=== PATIENT | female | born 1950 | race Caucasian/White ===

== ENCOUNTER 2018-06-21 18:37 | Emergency (ER) | payer OTHER, MEDICAID ==
[~2018-06-21] VITALS: Ht 154.9 cm; Wt 80.7 kg
[~2018-06-21 18:37] MED LIST: ASPIR-LOW81 MG PO; LANTUS100 U/ML SC; LISINOPRIL10 MG PO; METFORMIN HCL1000 MG PO; MOTRIN600 MG PO; SIMVASTATIN40 MG PO; SYNTHROID,LEVO50 MCG PO
[2018-06-21 18:41] VITALS: BP 141/74
[2018-06-21] MEDS ORDERED: INDOMETHACIN50 MG PO (19:56)
== END 2018-06-21 19:59 | disposition home or self-care (01) ==
LOC: ED 18:37
DX: M77.32 Calcaneal spur, left foot (principal); M25.572 Pain in left ankle and joints of left foot; Z79.899 Other long term (current) drug therapy

== ENCOUNTER → 2018-08-02 | Outpatient (CLI) | payer OTHER ==
[~2018-08-02] MED LIST changes: +INDOMETHACIN50 MG PO
[2018-08-02 11:51] LABS: HEMATOCRIT 44.8 % (37.0-47.0); HEMOGLOBIN 15.4 g/dl (12.0-16.0); MEAN CORPUSCULAR HGB 29.6 pg (27.0-31.0); MEAN CORPUSCULAR HGB CONC 34.4 g/dl (33.0-37.0); RED BLOOD COUNT 5.21 10*6/uL (4.10-5.10); RED CELL DISTRI WIDTH 14.4 % (0-14.5); WHITE BLOOD COUNT 8.5 10*3/uL (4.8-10.8)
[2018-08-02 12:15] LABS: ALBUMIN 3.8 gm/dl (3.1-4.5); BUN 17 mg/dl (7-24); CHLORIDE 107 mmol/L (98-107); HDL CHOLESTEROL 58 mg/dl (40-60); POTASSIUM 4.2 mmol/L (3.5-5.1); SODIUM 140 mmol/L (136-145)
[2018-08-02 12:22] LABS: ALKALINE PHOSPHATASE 138 U/L (45-117); CHOLESTEROL 238 mg/dL (<200); CPK 95 U/L (26-192); CREATININE 1.05 mg/dL (0.55-1.02); FREE T4 1.12 ng/dl (0.76-1.46); LDL CHOLESTEROL 147 mg/dL (9-159); SGOT/AST 20 IU/L (3-35); SGPT/ALT 26 U/L (12-78); TOTAL PROTEIN 7.9 gm/dL (6.4-8.2); TRIGLYCERIDES 163 mg/dl (<150); VLDL CHOLESTEROL 33 mg/dL (6-40)
== END | disposition home or self-care (01) ==
LOC: LAB 11:15
PROVIDERS: Family Medicine
DX: E11.9 Type 2 diabetes mellitus without complications (principal); E78.00 Pure hypercholesterolemia, unspecified; I10 Essential (primary) hypertension; E03.9 Hypothyroidism, unspecified; E55.9 Vitamin D deficiency, unspecified; M19.90 Unspecified osteoarthritis, unspecified site; F43.20 Adjustment disorder, unspecified

== ENCOUNTER → 2018-12-01 | Day surgery (SDC) | payer OTHER ==
[~2018-12-01] VITALS: Ht 157.4 cm; Wt 73.5 kg
[~2018-12-01] MED LIST changes: +ATENOLOL25 MG PO; +BIOTIN5000 MC1 SL; +DEXILANT60 M1 PO; +HUMALOG100 UNIT/1 SQ; +JANUVIA100 MG PO; -LISINOPRIL10 MG PO; +TOUJEO SOL300 UNIT/1 SQ; +ZESTRIL40 MG PO
--- NOTE | ~2018-12-01 | PROC NOTE ---
[place], [place] PROCEDURE NOTE NAME: TORI MCMAHON UNIT #: [id number] ROOM: DOCTOR: PETER FITZGERALD MD BIRTHDATE: [birth year] DOS: 12/01/2018 PROCEDURES: 1. Esophagogastroduodenoscopy and biopsy. 2. Colonoscopy. INDICATIONS: 1. GERD. 2. Colon cancer screening. An informed consent was obtained from the patient after indication of procedures, the alternatives and potential complications were explained to her. PROCEDURE MEDICATIONS: Sedation was administered by Anesthesiology Department. Scope used was Olympus pediatric colonoscope variable stiffness GIF-180, depth of insertion with upper endoscopy was to the descending duodenum and with the colonoscopy was to the cecum, which was identified by the usual landmarks, appendiceal orifice, ileocecal valve and triangular fold, in addition to transillumination in the right lower quadrant. FINDINGS: After adequate sedation, the patient was placed in left lateral decubitus position. Upper endoscopy was performed first. The scope was introduced under direct visualization through the upper esophageal sphincter into the esophagus. Esophageal mucosa appeared normal with the GE junction identified at 35 cm from the incisors with irregular Z line borders suggestive of short segment Diaz's esophagus, biopsies were obtained. The stomach was then intubated. Gastric mucosa inspected. No abnormalities were seen. No discrete ulcers or active bleeding. Retroflexed views in the fundus showed a grade 1 hiatal hernia. The pylorus was intubated easily. The duodenal bulb and descending duodenum were within normal range. Scope was then withdrawn after the stomach was decompressed. We then proceeded with the colonoscopy. Rectal examination showed a diminished sphincter tone and no external hemorrhoids. Scope was introduced into the rectum, then advanced to the cecum with no difficulty. The prep was adequate. The colon mucosa appeared normal with no evidence of polyps, diverticular ulcerations. Retrograde views in the rectum were unremarkable. The scope was then withdrawn after the rectum was decompressed. The patient tolerated the procedures well. IMPRESSION: 1. Small hiatal hernia. 2. Irregular Z line borders, biopsies obtained to rule out short segment Diaz esophagus. 3. Normal upper GI tract, otherwise. 4. Normal colon mucosa with no polyp seen. PLAN: We will review the histopathology reports and treat the patient accordingly. Repeat screening colonoscopy was advised in 10 years. Office followup will be scheduled p.r.n. [place], [place] PROCEDURE NOTE NAME: TORI MCMAHON UNIT #: [id number] ROOM: DOCTOR: LIA JOY,PETER BIRTHDATE: [birth year] PETER FITZGERALD MD CM:PROCNOTE:PROCEDURE NOTE [id number] PETER FITZGERALD MD
[2018-12-01 07:11] VITALS: BP 166/80
[2018-12-01 08:38] VITALS: BP 120/60
[2018-12-01 08:50] VITALS: BP 120/62
[2018-12-01 09:10] VITALS: BP 125/68
== END | disposition home or self-care (01) ==
LOC: SDC 11-17 08:00
DX: Z12.11 Encounter for screening for malignant neoplasm of colon (principal); K63.89 Other specified diseases of intestine; K21.9 Gastro-esophageal reflux disease without esophagitis; K22.8 Other specified diseases of esophagus; K44.9 Diaphragmatic hernia without obstruction or gangrene; I10 Essential (primary) hypertension; M19.90 Unspecified osteoarthritis, unspecified site; Z90.710 Acquired absence of both cervix and uterus; E10.9 Type 1 diabetes mellitus without complications; E66.9 Obesity, unspecified; Z68.29 Body mass index [BMI] 29.0-29.9, adult; Z98.890 Other specified postprocedural states; Z91.012 Allergy to eggs; Z91.011 Allergy to milk products; Z91.013 Allergy to seafood; Z91.018 Allergy to other foods; Z72.89 Other problems related to lifestyle; Z79.899 Other long term (current) drug therapy; Z79.84 Long term (current) use of oral hypoglycemic drugs; Z80.0 Family history of malignant neoplasm of digestive organs; Z82.3 Family history of stroke; Z82.49 Family history of ischemic heart disease and other diseases of the circulatory system

== ENCOUNTER → 2019-01-04 | Outpatient (CLI) | payer MEDICARE, OTHER ==
[2019-01-04 08:54] LABS: HEMATOCRIT 48.2 % (37.0-47.0); HEMOGLOBIN 16.2 g/dl (12.0-16.0); MEAN CELL VOLUME 87.2 fl (81.0-99.0); MEAN CORPUSCULAR HGB 29.3 pg (27.0-31.0); MEAN CORPUSCULAR HGB CONC 33.6 g/dl (33.0-37.0); RED BLOOD COUNT 5.53 10*6/uL (4.10-5.10); RED CELL DISTRI WIDTH 14.2 % (0-14.5); WHITE BLOOD COUNT 7.3 10*3/uL (4.8-10.8)
[2019-01-04 09:20] LABS: ALBUMIN 3.6 gm/dl (3.1-4.5); BUN 20 mg/dl (7-24); CHLORIDE 108 mmol/L (98-107); CHOLESTEROL 254 mg/dL (<200); CREATININE 0.91 mg/dL (0.55-1.02); HDL CHOLESTEROL 65 mg/dl (40-60); LDL CHOLESTEROL 156 mg/dL (9-159); POTASSIUM 3.7 mmol/L (3.5-5.1); SGOT/AST 27 IU/L (3-35); SODIUM 142 mmol/L (136-145); TRIGLYCERIDES 167 mg/dl (<150); VLDL CHOLESTEROL 33 mg/dL (6-40)
[2019-01-04 09:24] LABS: ALKALINE PHOSPHATASE 113 U/L (45-117); CPK 120 U/L (26-192); SGPT/ALT 29 U/L (12-78); TOTAL PROTEIN 7.5 gm/dL (6.4-8.2)
== END | disposition home or self-care (01) ==
LOC: LAB 08:33
PROVIDERS: Family Medicine
DX: E78.00 Pure hypercholesterolemia, unspecified (principal); E55.9 Vitamin D deficiency, unspecified; E11.9 Type 2 diabetes mellitus without complications; I10 Essential (primary) hypertension

== ENCOUNTER → 2019-05-21 | Outpatient (CLI) | payer MEDICARE, OTHER ==
[2019-05-21 09:02] LABS: HEMOGLOBIN 16.4 g/dl (12.0-16.0); MEAN CELL VOLUME 88.6 fl (81.0-99.0); MEAN CORPUSCULAR HGB 30.3 pg (27.0-31.0); MEAN CORPUSCULAR HGB CONC 34.2 g/dl (33.0-37.0); MEAN PLATELET VOLUME 10.8 fl (9.6-12.3); RED BLOOD COUNT 5.42 10*6/uL (4.10-5.10); RED CELL DISTRI WIDTH 13.9 % (0-14.5); WHITE BLOOD COUNT 6.7 10*3/uL (4.8-10.8)
[2019-05-21 09:17] LABS: ALBUMIN 3.5 gm/dl (3.1-4.5); ALKALINE PHOSPHATASE 96 U/L (45-117); BUN 30 mg/dl (7-24); CHLORIDE 113 mmol/L (98-107); CHOLESTEROL 211 mg/dL (<200); CREATININE 0.96 mg/dL (0.55-1.02); HDL CHOLESTEROL 59 mg/dl (40-60); LDL CHOLESTEROL 120 mg/dL (9-159); POTASSIUM 4.1 mmol/L (3.5-5.1); SGOT/AST 21 IU/L (3-35); SGPT/ALT 27 U/L (12-78); SODIUM 142 mmol/L (136-145); TOTAL PROTEIN 7.8 gm/dL (6.4-8.2); TRIGLYCERIDES 158 mg/dl (<150); VLDL CHOLESTEROL 32 mg/dL (6-40)
== END | disposition home or self-care (01) ==
LOC: LAB 08:18
PROVIDERS: Family Medicine
DX: E55.9 Vitamin D deficiency, unspecified (principal); E78.00 Pure hypercholesterolemia, unspecified

== ENCOUNTER → 2019-10-29 | Outpatient (CLI) | payer MEDICARE, MEDICAID ==
[2019-10-29 10:23] LABS: HEMATOCRIT 48.3 % (37.0-47.0); HEMOGLOBIN 16.4 g/dl (12.0-16.0); MEAN CELL VOLUME 86.6 fl (81.0-99.0); MEAN CORPUSCULAR HGB 29.4 pg (27.0-31.0); MEAN PLATELET VOLUME 11.6 fl (9.6-12.3); RED BLOOD COUNT 5.58 10*6/uL (4.10-5.10); WHITE BLOOD COUNT 9.7 10*3/uL (4.8-10.8)
[2019-10-29 10:51] LABS: ALBUMIN 3.8 gm/dl (3.1-4.5); ALKALINE PHOSPHATASE 94 U/L (45-117); BUN 18 mg/dl (7-24); CHLORIDE 109 mmol/L (98-107); CHOLESTEROL 198 mg/dL (<200); CPK 131 U/L (26-192); CREATININE 0.83 mg/dL (0.55-1.02); HDL CHOLESTEROL 66 mg/dl (40-60); LDL CHOLESTEROL 109 mg/dL (9-159); POTASSIUM 3.5 mmol/L (3.5-5.1); SGOT/AST 20 IU/L (3-35); SGPT/ALT 27 U/L (12-78); SODIUM 139 mmol/L (136-145); TRIGLYCERIDES 117 mg/dl (<150); VLDL CHOLESTEROL 23 mg/dL (6-40)
== END | disposition home or self-care (01) ==
LOC: LAB 09:55
PROVIDERS: Nurse Practitioner Family
DX: E11.9 Type 2 diabetes mellitus without complications (principal); E03.9 Hypothyroidism, unspecified; I10 Essential (primary) hypertension; E78.00 Pure hypercholesterolemia, unspecified; E55.9 Vitamin D deficiency, unspecified; R53.83 Other fatigue

== ENCOUNTER → 2020-01-10 | Outpatient (CLI) | payer MEDICARE ==
[2020-01-10 09:42] LABS: HEMATOCRIT 48.5 % (37.0-47.0); HEMOGLOBIN 16.5 g/dl (12.0-16.0); MEAN CELL VOLUME 88.5 fl (81.0-99.0); MEAN CORPUSCULAR HGB 30.1 pg (27.0-31.0); MEAN PLATELET VOLUME 12.1 fl (9.6-12.3); RED BLOOD COUNT 5.48 10*6/uL (4.10-5.10); RED CELL DISTRI WIDTH 13.5 % (0-14.5); WHITE BLOOD COUNT 7.9 10*3/uL (4.8-10.8)
[2020-01-10 10:06] LABS: ALBUMIN 3.6 gm/dl (3.1-4.5); BUN 20 mg/dl (7-24); CHLORIDE 110 mmol/L (98-107); POTASSIUM 3.6 mmol/L (3.5-5.1); SODIUM 139 mmol/L (136-145)
[2020-01-10 10:09] LABS: ALKALINE PHOSPHATASE 91 U/L (45-117); CHOLESTEROL 177 mg/dL (<200); CREATININE 0.72 mg/dL (0.55-1.02); HDL CHOLESTEROL 56 mg/dl (40-60); LDL CHOLESTEROL 89 mg/dL (9-159); SGOT/AST 21 IU/L (3-35); SGPT/ALT 26 U/L (12-78); TOTAL PROTEIN 7.5 gm/dL (6.4-8.2); TRIGLYCERIDES 159 mg/dl (<150); VLDL CHOLESTEROL 32 mg/dL (6-40)
== END | disposition home or self-care (01) ==
LOC: LAB 08:56
PROVIDERS: Family Medicine
DX: E11.9 Type 2 diabetes mellitus without complications (principal); E55.9 Vitamin D deficiency, unspecified; R53.83 Other fatigue; Z79.899 Other long term (current) drug therapy

== ENCOUNTER → 2020-04-08 | Outpatient (CLI) | payer MEDICARE ==
[2020-04-08 09:22] LABS: HEMATOCRIT 46.1 % (37.0-47.0); MEAN CELL VOLUME 87.6 fl (81.0-99.0); MEAN CORPUSCULAR HGB CONC 34.3 g/dl (33.0-37.0); MEAN PLATELET VOLUME 11.5 fl (9.6-12.3); RED BLOOD COUNT 5.26 10*6/uL (4.10-5.10); RED CELL DISTRI WIDTH 14.3 % (0-14.5); WHITE BLOOD COUNT 7.9 10*3/uL (4.8-10.8)
[2020-04-08 09:47] LABS: ALBUMIN 3.4 gm/dl (3.1-4.5); ALKALINE PHOSPHATASE 90 U/L (45-117); BUN 27 mg/dl (7-24); CHLORIDE 117 mmol/L (98-107); CHOLESTEROL 182 mg/dL (<200); CREATININE 0.65 mg/dL (0.55-1.02); HDL CHOLESTEROL 71 mg/dl (40-60); LDL CHOLESTEROL 94 mg/dL (9-159); POTASSIUM 3.5 mmol/L (3.5-5.1); SGOT/AST 18 IU/L (3-35); SGPT/ALT 28 U/L (12-78); SODIUM 145 mmol/L (136-145); TOTAL PROTEIN 7.1 gm/dL (6.4-8.2); TRIGLYCERIDES 84 mg/dl (<150); VLDL CHOLESTEROL 17 mg/dL (6-40)
== END | disposition home or self-care (01) ==
LOC: LAB 08:37
PROVIDERS: Family Medicine
DX: E11.9 Type 2 diabetes mellitus without complications (principal); E55.9 Vitamin D deficiency, unspecified; E78.00 Pure hypercholesterolemia, unspecified; I10 Essential (primary) hypertension

== ENCOUNTER → 2020-10-07 | Outpatient (CLI) | payer MEDICARE ==
[2020-10-07 10:12] LABS: HEMATOCRIT 49.2 % (37.0-47.0); MEAN CELL VOLUME 88.6 fl (81.0-99.0); MEAN CORPUSCULAR HGB 29.7 pg (27.0-31.0); MEAN CORPUSCULAR HGB CONC 33.5 g/dl (33.0-37.0); MEAN PLATELET VOLUME 10.7 fl (9.6-12.3); RED BLOOD COUNT 5.55 10*6/uL (4.10-5.10); RED CELL DISTRI WIDTH 13.5 % (0-14.5); WHITE BLOOD COUNT 9.2 10*3/uL (4.8-10.8)
[2020-10-07 10:28] LABS: ALBUMIN 3.8 gm/dl (3.1-4.5); ALKALINE PHOSPHATASE 98 U/L (45-117); BUN 25 mg/dl (7-24); CHLORIDE 114 mmol/L (98-107); CHOLESTEROL 264 mg/dL (<200); CPK 98 U/L (26-192); CREATININE 0.75 mg/dL (0.55-1.02); HDL CHOLESTEROL 66 mg/dl (40-60); LDL CHOLESTEROL 162 mg/dL (9-159); POTASSIUM 3.9 mmol/L (3.5-5.1); SGOT/AST 19 IU/L (3-35); SGPT/ALT 22 U/L (12-78); SODIUM 143 mmol/L (136-145); TOTAL PROTEIN 7.8 gm/dL (6.4-8.2); TRIGLYCERIDES 179 mg/dl (<150); VLDL CHOLESTEROL 36 mg/dL (6-40)
== END | disposition home or self-care (01) ==
LOC: LAB 09:48
PROVIDERS: ATTEND Family Medicine
DX: I10 Essential (primary) hypertension (principal); E78.00 Pure hypercholesterolemia, unspecified; E55.9 Vitamin D deficiency, unspecified; E11.9 Type 2 diabetes mellitus without complications

== ENCOUNTER → 2021-01-26 | Outpatient (CLI) | payer MEDICARE ==
[2021-01-26 10:04] LABS: HEMATOCRIT 49.1 % (37.0-47.0); MEAN CELL VOLUME 88.9 fl (81.0-99.0); MEAN CORPUSCULAR HGB 29.7 pg (27.0-31.0); MEAN CORPUSCULAR HGB CONC 33.4 g/dl (33.0-37.0); MEAN PLATELET VOLUME 10.7 fl (9.6-12.3); RED BLOOD COUNT 5.52 10*6/uL (4.10-5.10); RED CELL DISTRI WIDTH 13.5 % (0-14.5); WHITE BLOOD COUNT 10.1 10*3/uL (4.8-10.8)
[2021-01-26 10:15] LABS: ALBUMIN 3.9 gm/dl (3.1-4.5); ALKALINE PHOSPHATASE 107 U/L (45-117); BUN 21 mg/dl (7-24); CHLORIDE 112 mmol/L (98-107); CHOLESTEROL 171 mg/dL (<200); CPK 81 U/L (26-192); CREATININE 0.83 mg/dL (0.55-1.02); HDL CHOLESTEROL 68 mg/dl (40-60); LDL CHOLESTEROL 83 mg/dL (9-159); POTASSIUM 3.8 mmol/L (3.5-5.1); SGOT/AST 12 IU/L (3-35); SGPT/ALT 24 U/L (12-78); SODIUM 143 mmol/L (136-145); TOTAL PROTEIN 8.5 gm/dL (6.4-8.2); TRIGLYCERIDES 102 mg/dl (<150); VLDL CHOLESTEROL 20 mg/dL (6-40)
== END | disposition home or self-care (01) ==
LOC: LAB 09:14
PROVIDERS: ATTEND Family Medicine
DX: E11.9 Type 2 diabetes mellitus without complications (principal); I10 Essential (primary) hypertension; E78.00 Pure hypercholesterolemia, unspecified

== ENCOUNTER → 2021-06-01 | Outpatient (CLI) | payer MEDICARE ==
[2021-06-01 09:28] LABS: HEMATOCRIT 45.4 % (37.0-47.0); MEAN CORPUSCULAR HGB CONC 34.1 g/dl (33.0-37.0); MEAN PLATELET VOLUME 11.8 fl (9.6-12.3); RED BLOOD COUNT 5.16 10*6/uL (4.10-5.10); RED CELL DISTRI WIDTH 13.2 % (0-14.5); WHITE BLOOD COUNT 6.2 10*3/uL (4.8-10.8)
[2021-06-01 09:48] LABS: ALBUMIN 3.6 gm/dl (3.1-4.5); BUN 19 mg/dl (7-24); CHLORIDE 112 mmol/L (98-107); POTASSIUM 3.9 mmol/L (3.5-5.1); SODIUM 140 mmol/L (136-145)
[2021-06-01 09:54] LABS: ALKALINE PHOSPHATASE 102 U/L (45-117); CHOLESTEROL 249 mg/dL (<200); CPK 90 U/L (26-192); CREATININE 0.74 mg/dL (0.55-1.02); LDL CHOLESTEROL 161 mg/dL (9-159); SGOT/AST 13 IU/L (3-35); SGPT/ALT 19 U/L (12-78); TOTAL PROTEIN 7.4 gm/dL (6.4-8.2); TRIGLYCERIDES 153 mg/dl (<150)
== END | disposition home or self-care (01) ==
LOC: LAB 08:35
PROVIDERS: ATTEND Family Medicine
DX: E11.9 Type 2 diabetes mellitus without complications (principal); I10 Essential (primary) hypertension; E78.00 Pure hypercholesterolemia, unspecified

== ENCOUNTER → 2021-09-24 | Outpatient (CLI) | payer MEDICARE ==
[2021-09-24 10:22] LABS: HEMATOCRIT 47.2 % (37.0-47.0); MEAN CELL VOLUME 87.2 fl (81.0-99.0); MEAN CORPUSCULAR HGB 30.1 pg (27.0-31.0); MEAN CORPUSCULAR HGB CONC 34.5 g/dl (33.0-37.0); MEAN PLATELET VOLUME 11.3 fl (9.6-12.3); RED BLOOD COUNT 5.41 10*6/uL (4.10-5.10); RED CELL DISTRI WIDTH 12.8 % (0-14.5); WHITE BLOOD COUNT 8.4 10*3/uL (4.8-10.8)
[2021-09-24 10:38] LABS: ALBUMIN 3.9 gm/dl (3.1-4.5); ALKALINE PHOSPHATASE 122 U/L (45-117); BUN 14 mg/dl (7-24); CHLORIDE 110 mmol/L (98-107); CHOLESTEROL 166 mg/dL (<200); CPK 108 U/L (26-192); LDL CHOLESTEROL 73 mg/dL (9-159); POTASSIUM 3.2 mmol/L (3.5-5.1); SGOT/AST 16 IU/L (3-35); SGPT/ALT 26 U/L (12-78); SODIUM 142 mmol/L (136-145); TRIGLYCERIDES 103 mg/dl (<150)
== END | disposition home or self-care (01) ==
LOC: LAB 10:05
PROVIDERS: ATTEND Family Medicine
DX: I10 Essential (primary) hypertension (principal); E11.9 Type 2 diabetes mellitus without complications; E78.00 Pure hypercholesterolemia, unspecified

== ENCOUNTER → 2022-02-10 | Outpatient (CLI) | payer MEDICARE ==
[2022-02-10 11:41] LABS: ALKALINE PHOSPHATASE 113 U/L (45-117); BUN 21 mg/dl (7-24); CHLORIDE 110 mmol/L (98-107); CHOLESTEROL 252 mg/dL (<200); CPK 88 U/L (26-192); CREATININE 0.78 mg/dL (0.55-1.02); LDL CHOLESTEROL 156 mg/dL (9-159); POTASSIUM 3.5 mmol/L (3.5-5.1); SGOT/AST 26 IU/L (3-35); SGPT/ALT 35 U/L (12-78); SODIUM 139 mmol/L (136-145); TOTAL PROTEIN 7.9 gm/dL (6.4-8.2); TRIGLYCERIDES 112 mg/dl (<150)
== END | disposition home or self-care (01) ==
LOC: LAB 10:46
PROVIDERS: ATTEND Family Medicine
DX: E78.00 Pure hypercholesterolemia, unspecified (principal); E11.9 Type 2 diabetes mellitus without complications; I10 Essential (primary) hypertension

== ENCOUNTER → 2022-05-05 | Outpatient (CLI) | payer MEDICARE ==
[2022-05-05 10:47] LABS: MEAN CELL VOLUME 87.6 fl (81.0-99.0); MEAN CORPUSCULAR HGB 30.1 pg (27.0-31.0); MEAN CORPUSCULAR HGB CONC 34.4 g/dl (33.0-37.0); MEAN PLATELET VOLUME 10.5 fl (9.6-12.3); RED BLOOD COUNT 5.48 10*6/uL (4.10-5.10); RED CELL DISTRI WIDTH 13.5 % (0-14.5); WHITE BLOOD COUNT 8.8 10*3/uL (4.8-10.8)
[2022-05-05 11:03] LABS: ALKALINE PHOSPHATASE 98 U/L (45-117); BUN 30 mg/dl (7-24); CHLORIDE 113 mmol/L (98-107); CHOLESTEROL 184 mg/dL (<200); CREATININE 0.75 mg/dL (0.55-1.02); LDL CHOLESTEROL 95 mg/dL (9-159); POTASSIUM 4.2 mmol/L (3.5-5.1); SGOT/AST 15 IU/L (3-35); SGPT/ALT 26 U/L (12-78); SODIUM 143 mmol/L (136-145); TOTAL PROTEIN 7.6 gm/dL (6.4-8.2); TRIGLYCERIDES 142 mg/dl (<150)
[2022-05-05 11:29] LABS: VITAMIN D, 25-HYDROXY 19.1 ng/mL (30-100)
== END | disposition home or self-care (01) ==
LOC: LAB 10:21
PROVIDERS: ATTEND Family Medicine
DX: E11.9 Type 2 diabetes mellitus without complications (principal); E78.00 Pure hypercholesterolemia, unspecified; E55.9 Vitamin D deficiency, unspecified; R53.83 Other fatigue

== ENCOUNTER 2022-06-21 20:13 | Inpatient (IN) | payer MEDICARE ==
[~2022-06-21] VITALS: Ht 157.5 cm; Wt 48.3 kg
[2022-06-21 20:30] VITALS: BP 127/83
[2022-06-21 20:49] LABS: HEMATOCRIT 56.6 % (37.0-47.0); MEAN CELL VOLUME 89.6 fl (81.0-99.0); MEAN CORPUSCULAR HGB 30.1 pg (27.0-31.0); MEAN CORPUSCULAR HGB CONC 33.6 g/dl (33.0-37.0); MEAN PLATELET VOLUME 10.9 fl (9.6-12.3); PLATELET COUNT AUTOMATED 299 10*3/uL (130-400); RED BLOOD COUNT 6.32 10*6/uL (4.10-5.10); WHITE BLOOD COUNT 17.9 10*3/uL (4.8-10.8)
[2022-06-21 20:55] LABS: MANUAL DIFF REFLEX YES
[2022-06-21 21:08] LABS: CREATININE 2.29 mg/dL (0.55-1.02); POTASSIUM 3.4 mmol/L (3.5-5.1); TOTAL PROTEIN 8.5 gm/dL (6.4-8.2)
[2022-06-21 21:10] LABS: PLATELET SUFFICIENCY NORMAL (NORMAL); TOTAL CELLS COUNTED 100 #CELLS
[2022-06-21 21:11] LABS: TOXIC GRANULATION SLIGHT
[2022-06-21 21:18] LABS: BILIRUBIN Negative (Negative); BLOOD Negative (Negative); CLARITY Clear (Clear); COLOR Yellow (Yellow); GLUCOSE 3+ (Negative); KETONE 3+ (Negative); LEUKO ESTERASE Negative (Negative); NITRITE Negative (Negative); PH 5.5 (4.5-8.0); SPECIFIC GRAVITY 1.025 (1.001-1.030); UROBILINOGEN 0.2 E.U./dl (0.0-1.0)
[2022-06-21 21:26] LABS: BACTERIA TRACE; EPITHELIAL CELLS 0-2; MUCOUS 1+; WBC 0-2 wbc/hpf (0-5)
[2022-06-21 21:57] VITALS: BP 126/71
[2022-06-21 23:53] VITALS: BP 118/66
[2022-06-22] VITALS (7 sets, daily range): BP systolic 94–142; BP diastolic 49–85
[2022-06-22 04:46] LABS: HEMATOCRIT 53.5 % (37.0-47.0); MEAN CORPUSCULAR HGB 29.8 pg (27.0-31.0); MEAN CORPUSCULAR HGB CONC 34.6 g/dl (33.0-37.0); MEAN PLATELET VOLUME 11.5 fl (9.6-12.3); PLATELET COUNT AUTOMATED 272 10*3/uL (130-400); RED CELL DISTRI WIDTH 14.9 % (0-14.5); WHITE BLOOD COUNT 20.4 10*3/uL (4.8-10.8)
[2022-06-22 04:47] LABS: MANUAL DIFF REFLEX YES
[2022-06-22 04:56] LABS: MEAN CELL VOLUME 86.3 fl (81.0-99.0)
[2022-06-22 05:03] LABS: CREATININE 1.88 mg/dL (0.55-1.02); POTASSIUM 3.1 mmol/L (3.5-5.1); TOTAL PROTEIN 7.8 gm/dL (6.4-8.2)
[2022-06-22 05:07] LABS: PLATELET SUFFICIENCY NORMAL (NORMAL); TOTAL CELLS COUNTED 100 #CELLS
[2022-06-22 10:35] LABS: CREATININE 1.67 mg/dL (0.55-1.02); POTASSIUM 3.4 mmol/L (3.5-5.1); TOTAL PROTEIN 7.7 gm/dL (6.4-8.2)
[2022-06-22 15:36] LABS: CREATININE 1.58 mg/dL (0.55-1.02); POTASSIUM 3.9 mmol/L (3.5-5.1); TOTAL PROTEIN 7.8 gm/dL (6.4-8.2)
[2022-06-22 18:54] LABS: CREATININE 1.37 mg/dL (0.55-1.02); POTASSIUM 4.3 mmol/L (3.5-5.1); TOTAL PROTEIN 6.6 gm/dL (6.4-8.2)
[2022-06-23] VITALS: BP 130/71
[2022-06-23 00:56] LABS: CREATININE 1.2 mg/dL (0.55-1.02); POTASSIUM 3.7 mmol/L (3.5-5.1); TOTAL PROTEIN 6.3 gm/dL (6.4-8.2)
[2022-06-23 04:00] VITALS: BP 122/67
[2022-06-23 05:12] LABS: BUN 42 mg/dl (7-24); CHLORIDE 121 mmol/L (98-107); CREATININE 0.93 mg/dL (0.55-1.02); POTASSIUM 3.4 mmol/L (3.5-5.1); SODIUM 150 mmol/L (136-145)
[2022-06-23 06:17] LABS: BASO % 0.2 % (0.0-1.0); EOS # 0.1 10*3/uL (0.0-0.4); EOS % 0.6 % (1.0-4.0); HEMATOCRIT 46.5 % (37.0-47.0); LYMPH # 2.8 10*3/uL (1.3-4.4); LYMPH % 24.4 % (27.0-41.0); MEAN CELL VOLUME 88.1 fl (81.0-99.0); MEAN CORPUSCULAR HGB 29.9 pg (27.0-31.0); MEAN PLATELET VOLUME 11.1 fl (9.6-12.3); MONO % 8.8 % (3.0-9.0); NEUT # 7.5 10*3/uL (2.3-7.9); NEUT % 65.7 % (47.0-73.0); PLATELET COUNT AUTOMATED 210 10*3/uL (130-400); RED BLOOD COUNT 5.28 10*6/uL (4.10-5.10); RED CELL DISTRI WIDTH 14.6 % (0-14.5); WHITE BLOOD COUNT 11.4 10*3/uL (4.8-10.8)
[2022-06-23 08:00] VITALS: BP 130/71
[2022-06-23 12:00] VITALS: BP 137/70
[2022-06-23 16:00] VITALS: BP 112/58
[2022-06-23 20:00] VITALS: BP 130/69
[2022-06-24] VITALS: BP 112/68
[2022-06-24 05:37] LABS: CHLORIDE 114 mmol/L (98-107); CREATININE 0.56 mg/dL (0.55-1.02); POTASSIUM 3.5 mmol/L (3.5-5.1); SODIUM 145 mmol/L (136-145)
[2022-06-24 05:44] LABS: BUN 26 mg/dl (7-24)
[2022-06-24 06:22] LABS: BASO % 0.1 % (0.0-1.0); EOS # 0.1 10*3/uL (0.0-0.4); EOS % 1.2 % (1.0-4.0); HEMATOCRIT 47.1 % (37.0-47.0); LYMPH # 3.7 10*3/uL (1.3-4.4); LYMPH % 41.9 % (27.0-41.0); MEAN CELL VOLUME 88.7 fl (81.0-99.0); MEAN CORPUSCULAR HGB 30.3 pg (27.0-31.0); MEAN CORPUSCULAR HGB CONC 34.2 g/dl (33.0-37.0); MEAN PLATELET VOLUME 11.3 fl (9.6-12.3); MONO # 0.7 10*3/uL (0.1-1.0); NEUT # 4.3 10*3/uL (2.3-7.9); NEUT % 48.5 % (47.0-73.0); PLATELET COUNT AUTOMATED 188 10*3/uL (130-400); RED BLOOD COUNT 5.31 10*6/uL (4.10-5.10); RED CELL DISTRI WIDTH 14.2 % (0-14.5); WHITE BLOOD COUNT 8.9 10*3/uL (4.8-10.8)
[2022-06-24 08:00] VITALS: BP 152/76
[2022-06-24] MEDS ORDERED: ASPIRIN ADULT L81 M2 PO (09:53)
[2022-06-24] MEDS ORDERED: LOSARTAN POTASS25 M1 PO (10:06)
[2022-06-24 12:00] VITALS: BP 159/78
[2022-06-24 15:58] VITALS: BP 131/76
[2022-06-24 20:00] VITALS: BP 117/73
[2022-06-25] VITALS: BP 135/84
[2022-06-25 06:08] LABS: CHLORIDE 111 mmol/L (98-107); CREATININE 0.45 mg/dL (0.55-1.02); POTASSIUM 3.6 mmol/L (3.5-5.1); SODIUM 141 mmol/L (136-145)
[2022-06-25 06:09] LABS: BUN 14 mg/dl (7-24)
[2022-06-25 08:00] VITALS: BP 119/64
[2022-06-25 12:00] VITALS: BP 152/81
[2022-06-25 16:00] VITALS: BP 156/83
[2022-06-25 20:00] VITALS: BP 131/69
[2022-06-26] VITALS: BP 145/80
[2022-06-26 08:00] VITALS: BP 134/74
[2022-06-26 12:00] VITALS: BP 152/71
[2022-06-26 16:00] VITALS: BP 165/76
[2022-06-26 20:00] VITALS: BP 125/69
[2022-06-27] VITALS: BP 148/73
[2022-06-27 08:00] VITALS: BP 155/83
== END 2022-06-27 12:18 | DRG 637 ==
LOC: ED 20:13 → EDHOLD 22:46 → ICCU 22:46 → 4E 06-24 06:46
PROVIDERS: Physician Assistant; ADMIT Internal Medicine; ATTEND Internal Medicine
DX: E11.10 Type 2 diabetes mellitus with ketoacidosis without coma (principal); N17.0 Acute kidney failure with tubular necrosis; E87.0 Hyperosmolality and hypernatremia; Z20.822 Contact with and (suspected) exposure to COVID-19; E03.9 Hypothyroidism, unspecified; K21.00 Gastro-esophageal reflux disease with esophagitis, without bleeding; E87.6 Hypokalemia; D75.1 Secondary polycythemia; E86.0 Dehydration; Z90.710 Acquired absence of both cervix and uterus; Z98.51 Tubal ligation status; Z82.49 Family history of ischemic heart disease and other diseases of the circulatory system

== ENCOUNTER → 2022-08-25 | Outpatient (CLI) | payer MEDICARE ==
[~2022-08-25] MED LIST changes: +ASPIRIN ADULT L81 M2 PO; +LOSARTAN POTASS25 M1 PO
[2022-08-25 09:47] LABS: HEMATOCRIT 50.1 % (37.0-47.0); MEAN CELL VOLUME 92.4 fl (81.0-99.0); MEAN CORPUSCULAR HGB 30.8 pg (27.0-31.0); MEAN CORPUSCULAR HGB CONC 33.3 g/dl (33.0-37.0); MEAN PLATELET VOLUME 10.3 fl (9.6-12.3); RED BLOOD COUNT 5.42 10*6/uL (4.10-5.10); RED CELL DISTRI WIDTH 14.2 % (0-14.5)
[2022-08-25 10:10] LABS: ALKALINE PHOSPHATASE 78 U/L (45-117); BUN 26 mg/dl (7-24); CHLORIDE 112 mmol/L (98-107); SGOT/AST 16 IU/L (3-35); SGPT/ALT 24 U/L (12-78); SODIUM 142 mmol/L (136-145); TOTAL PROTEIN 7.6 gm/dL (6.4-8.2)
== END | disposition home or self-care (01) ==
LOC: LAB 09:21
PROVIDERS: ATTEND Family Medicine
DX: D72.829 Elevated white blood cell count, unspecified (principal); R63.4 Abnormal weight loss

== ENCOUNTER → 2022-09-09 | Outpatient (CLI) | payer MEDICARE | END | disposition home or self-care (01) | LOC: MAMMO 08:41 | PROVIDERS: ATTEND Family Medicine | DX: N64.59 Other signs and symptoms in breast (principal); N64.9 Disorder of breast, unspecified ==

== ENCOUNTER → 2022-09-23 | Outpatient (CLI) | payer MEDICARE | END | disposition home or self-care (01) | LOC: US 01:00 | PROVIDERS: ATTEND Family Medicine | DX: R10.813 Right lower quadrant abdominal tenderness (principal); N64.59 Other signs and symptoms in breast; Z90.710 Acquired absence of both cervix and uterus; Z90.722 Acquired absence of ovaries, bilateral ==

== ENCOUNTER → 2022-11-29 | Outpatient (CLI) | payer MEDICARE ==
[2022-11-29 07:48] LABS: HEMATOCRIT 48.5 % (37.0-47.0); MEAN CELL VOLUME 88.8 fl (81.0-99.0); MEAN CORPUSCULAR HGB 29.9 pg (27.0-31.0); MEAN CORPUSCULAR HGB CONC 33.6 g/dl (33.0-37.0); MEAN PLATELET VOLUME 10.5 fl (9.6-12.3); RED BLOOD COUNT 5.46 10*6/uL (4.10-5.10); RED CELL DISTRI WIDTH 13.8 % (0-14.5); WHITE BLOOD COUNT 5.2 10*3/uL (4.8-10.8)
[2022-11-29 08:15] LABS: ALKALINE PHOSPHATASE 86 U/L (46-116); BUN 20 mg/dl (9-23); CHLORIDE 109 mmol/L (98-107); CHOLESTEROL 199 mg/dL (<200); CPK 66 U/L (34-171); LDL CHOLESTEROL 109 mg/dL (9-159); POTASSIUM 3.7 mmol/L (3.4-5.1); SGPT/ALT 20 U/L (10-49); TOTAL PROTEIN 7.3 gm/dL (6.0-8.0); TRIGLYCERIDES 143 mg/dl (<150)
== END | disposition home or self-care (01) ==
LOC: LAB 07:13
PROVIDERS: ATTEND Family Medicine
DX: E11.9 Type 2 diabetes mellitus without complications (principal); E78.00 Pure hypercholesterolemia, unspecified; E55.9 Vitamin D deficiency, unspecified; M54.50 Low back pain, unspecified; I10 Essential (primary) hypertension; M85.88 Other specified disorders of bone density and structure, other site

== ENCOUNTER → 2022-12-17 | Outpatient (CLI) | payer MEDICARE | END | disposition home or self-care (01) | LOC: RAD 12-13 00:46 | PROVIDERS: ATTEND Family Medicine | DX: M85.9 Disorder of bone density and structure, unspecified (principal); M81.0 Age-related osteoporosis without current pathological fracture ==

== ENCOUNTER → 2023-02-28 | Outpatient (CLI) | payer MEDICARE ==
[2023-02-28 08:52] LABS: HEMATOCRIT 48.8 % (37.0-47.0); MEAN CELL VOLUME 89.9 fl (81.0-99.0); MEAN CORPUSCULAR HGB 30.2 pg (27.0-31.0); MEAN CORPUSCULAR HGB CONC 33.6 g/dl (33.0-37.0); MEAN PLATELET VOLUME 10.7 fl (9.6-12.3); RED BLOOD COUNT 5.43 10*6/uL (4.10-5.10); RED CELL DISTRI WIDTH 14.5 % (0-14.5); WHITE BLOOD COUNT 7.9 10*3/uL (4.8-10.8)
[2023-02-28 10:33] LABS: ALKALINE PHOSPHATASE 87 U/L (46-116); BUN 17 mg/dl (9-23); CHLORIDE 104 mmol/L (98-107); CPK 73 U/L (34-171); SGPT/ALT 21 U/L (10-49); TOTAL PROTEIN 6.8 gm/dL (6.0-8.0)
[2023-02-28 12:04] LABS: CHOLESTEROL 193 mg/dL (<200); LDL CHOLESTEROL 103 mg/dL (9-159); TRIGLYCERIDES 92 mg/dl (<150)
== END | disposition home or self-care (01) ==
LOC: LAB 08:15
PROVIDERS: ATTEND Family Medicine
DX: E11.9 Type 2 diabetes mellitus without complications (principal); E78.00 Pure hypercholesterolemia, unspecified; E55.9 Vitamin D deficiency, unspecified; I10 Essential (primary) hypertension

== ENCOUNTER → 2023-04-19 | Outpatient (CLI) | payer MEDICARE | END | disposition home or self-care (01) | LOC: LAB 14:21 | PROVIDERS: ATTEND Family Medicine | DX: J02.9 Acute pharyngitis, unspecified (principal); R05.9 Cough, unspecified; R53.83 Other fatigue ==

== ENCOUNTER → 2023-09-02 | Outpatient (CLI) | payer MEDICARE ==
[2023-09-02 10:43] LABS: HEMATOCRIT 48.2 % (37.0-47.0); MEAN CELL VOLUME 85.5 fl (81.0-99.0); MEAN CORPUSCULAR HGB 29.8 pg (27.0-31.0); MEAN CORPUSCULAR HGB CONC 34.9 g/dl (33.0-37.0); MEAN PLATELET VOLUME 10.2 fl (9.6-12.3); RED BLOOD COUNT 5.64 10*6/uL (4.10-5.10); RED CELL DISTRI WIDTH 15.7 % (0-14.5); WHITE BLOOD COUNT 11.2 10*3/uL (4.8-10.8)
[2023-09-02 11:15] LABS: ALKALINE PHOSPHATASE 60 U/L (46-116); BUN 16 mg/dl (9-23); CHLORIDE 111 mmol/L (98-107); CHOLESTEROL 208 mg/dL (<200); CPK 123 U/L (34-171); LDL CHOLESTEROL 132 mg/dL (9-159); POTASSIUM 4.3 mmol/L (3.4-5.1); SGPT/ALT 12 U/L (10-49); TOTAL PROTEIN 7.6 gm/dL (6.0-8.0); TRIGLYCERIDES 97 mg/dl (<150)
== END | disposition home or self-care (01) ==
LOC: LAB 10:11
PROVIDERS: ATTEND Family Medicine
DX: E11.9 Type 2 diabetes mellitus without complications (principal); I10 Essential (primary) hypertension; E78.00 Pure hypercholesterolemia, unspecified

== ENCOUNTER → 2023-12-06 | Outpatient (CLI) | payer MEDICARE ==
[2023-12-06 09:31] LABS: HEMATOCRIT 52.2 % (37.0-47.0); MEAN CELL VOLUME 92.4 fl (81.0-99.0); MEAN CORPUSCULAR HGB 30.3 pg (27.0-31.0); MEAN CORPUSCULAR HGB CONC 32.8 g/dl (33.0-37.0); MEAN PLATELET VOLUME 10.7 fl (9.6-12.3); RED BLOOD COUNT 5.65 10*6/uL (4.10-5.10); RED CELL DISTRI WIDTH 13.5 % (0-14.5); WHITE BLOOD COUNT 7.3 10*3/uL (4.8-10.8)
[2023-12-06 09:53] LABS: ALKALINE PHOSPHATASE 85 U/L (46-116); BUN 26 mg/dl (9-23); CHLORIDE 111 mmol/L (98-107); CHOLESTEROL 234 mg/dL (<200); LDL CHOLESTEROL 134 mg/dL (9-159); POTASSIUM 4.2 mmol/L (3.4-5.1); SGPT/ALT 14 U/L (5-49); TOTAL PROTEIN 7.2 gm/dL (6.0-8.0); TRIGLYCERIDES 120 mg/dl (<150)
== END | disposition home or self-care (01) ==
LOC: LAB 08:56
PROVIDERS: ATTEND Family Medicine
DX: I10 Essential (primary) hypertension (principal); E11.9 Type 2 diabetes mellitus without complications; E78.00 Pure hypercholesterolemia, unspecified

== ENCOUNTER → 2024-07-06 | Outpatient (CLI) | payer MEDICARE ==
[2024-07-06 11:09] LABS: HEMATOCRIT 44.7 % (37.0-47.0); MEAN CELL VOLUME 88.7 fl (81.0-99.0); MEAN CORPUSCULAR HGB 31.7 pg (27.0-31.0); MEAN CORPUSCULAR HGB CONC 35.8 g/dl (33.0-37.0); MEAN PLATELET VOLUME 10.6 fl (9.6-12.3); RED BLOOD COUNT 5.04 10*6/uL (4.10-5.10); RED CELL DISTRI WIDTH 14.4 % (0-14.5); WHITE BLOOD COUNT 7.8 10*3/uL (4.8-10.8)
[2024-07-06 11:29] LABS: ALKALINE PHOSPHATASE 56 U/L (46-116); BUN 13 mg/dl (9-23); CHLORIDE 108 mmol/L (98-107); CHOLESTEROL 189 mg/dL (<200); CPK 91 U/L (34-171); LDL CHOLESTEROL 105 mg/dL (9-159); POTASSIUM 3.8 mmol/L (3.4-5.1); SGPT/ALT 13 U/L (5-49); TOTAL PROTEIN 6.9 gm/dL (6.0-8.0); TRIGLYCERIDES 143 mg/dl (<150)
== END | disposition home or self-care (01) ==
LOC: LAB 10:48
PROVIDERS: ATTEND Family Medicine
DX: E11.9 Type 2 diabetes mellitus without complications (principal); H91.93 Unspecified hearing loss, bilateral

== ENCOUNTER → 2024-11-16 | Outpatient (CLI) | payer MEDICARE ==
[2024-11-16 10:03] LABS: HEMATOCRIT 46.1 % (37.0-47.0); MEAN CELL VOLUME 92.6 fl (81.0-99.0); MEAN CORPUSCULAR HGB 30.5 pg (27.0-31.0); MEAN PLATELET VOLUME 11.9 fl (9.6-12.3); RED BLOOD COUNT 4.98 10*6/uL (4.10-5.10); RED CELL DISTRI WIDTH 14.4 % (0-14.5); WHITE BLOOD COUNT 9.1 10*3/uL (4.8-10.8)
[2024-11-16 10:30] LABS: ALKALINE PHOSPHATASE 70 U/L (46-116); BUN 17 mg/dl (9-23); CHLORIDE 106 mmol/L (98-107); CHOLESTEROL 164 mg/dL (<200); CPK 55 U/L (34-171); LDL CHOLESTEROL 80 mg/dL (9-159); POTASSIUM 3.5 mmol/L (3.4-5.1); SGPT/ALT 14 U/L (5-49); TRIGLYCERIDES 149 mg/dl (<150)
== END | disposition home or self-care (01) ==
LOC: LAB 08:52
PROVIDERS: ATTEND Family Medicine
DX: E11.9 Type 2 diabetes mellitus without complications (principal); I10 Essential (primary) hypertension; E78.00 Pure hypercholesterolemia, unspecified; K21.9 Gastro-esophageal reflux disease without esophagitis

== ENCOUNTER → 2025-03-22 | Outpatient (CLI) | payer MEDICARE ==
[2025-03-22 07:54] LABS: MEAN CELL VOLUME 89.4 fl (81.0-99.0); MEAN CORPUSCULAR HGB 29.7 pg (27.0-31.0); MEAN CORPUSCULAR HGB CONC 33.2 g/dl (33.0-37.0); MEAN PLATELET VOLUME 10.4 fl (9.6-12.3); RED BLOOD COUNT 5.26 10*6/uL (4.10-5.10); RED CELL DISTRI WIDTH 14.6 % (0-14.5)
[2025-03-22 08:23] LABS: ALKALINE PHOSPHATASE 69 U/L (46-116); BUN 22 mg/dl (9-23); CHLORIDE 107 mmol/L (98-107); CHOLESTEROL 192 mg/dL (<200); LDL CHOLESTEROL 90 mg/dL (9-159); POTASSIUM 4.6 mmol/L (3.4-5.1); SGPT/ALT 20 U/L (5-49); TOTAL PROTEIN 7.2 gm/dL (6.0-8.0); TRIGLYCERIDES 125 mg/dl (<150)
== END | disposition home or self-care (01) ==
LOC: LAB 07:18
PROVIDERS: ATTEND Family Medicine
DX: E11.9 Type 2 diabetes mellitus without complications (principal); I10 Essential (primary) hypertension; E78.00 Pure hypercholesterolemia, unspecified

== ENCOUNTER 2025-04-22 08:30 | Emergency (ER) | payer OTHER ==
[~2025-04-22] VITALS: Ht 154.9 cm; Wt 48.5 kg
[2025-04-22 08:48] VITALS: BP 176/77
== END 2025-04-22 09:29 | disposition home or self-care (01) ==
LOC: ED 08:30
DX: H11.422 Conjunctival edema, left eye (principal); E11.9 Type 2 diabetes mellitus without complications; E03.9 Hypothyroidism, unspecified; K21.9 Gastro-esophageal reflux disease without esophagitis; Z88.8 Allergy status to other drugs, medicaments and biological substances; Z91.013 Allergy to seafood; Z91.018 Allergy to other foods; Z91.011 Allergy to milk products; Z79.82 Long term (current) use of aspirin; Z79.899 Other long term (current) drug therapy; Z90.711 Acquired absence of uterus with remaining cervical stump

== ENCOUNTER 2025-06-24 08:42 | Emergency (ER) | payer OTHER ==
[~2025-06-24] VITALS: Ht 154.9 cm; Wt 71.2 kg
[2025-06-24 08:53] VITALS: BP 154/83
== END 2025-06-24 10:03 | disposition home or self-care (01) ==
LOC: ED 08:42
DX: S93.402A Sprain of unspecified ligament of left ankle, initial encounter (principal); E11.9 Type 2 diabetes mellitus without complications; I10 Essential (primary) hypertension; Z79.82 Long term (current) use of aspirin; Z79.4 Long term (current) use of insulin; Z79.899 Other long term (current) drug therapy; Z91.012 Allergy to eggs; Z91.018 Allergy to other foods; Z91.010 Allergy to peanuts; Z91.013 Allergy to seafood; Z90.710 Acquired absence of both cervix and uterus; Z98.51 Tubal ligation status; Z98.890 Other specified postprocedural states; X50.1XXA Overexertion from prolonged static or awkward postures, initial encounter; Y93.89 Activity, other specified; Y92.89 Other specified places as the place of occurrence of the external cause; Y99.8 Other external cause status

== ENCOUNTER → 2025-06-26 | Outpatient (CLI) | payer OTHER ==
[2025-06-26 08:09] LABS: MEAN CELL VOLUME 89.7 fl (81.0-99.0); MEAN CORPUSCULAR HGB 30.0 pg (27.0-31.0); MEAN PLATELET VOLUME 10.4 fl (9.6-12.3); NUCLEATED RED BLOOD CELL 0.0 % (0.0-0.0); NUCLEATED RED BLOOD CELL 0.0 10*3/uL (0.0-0.0); PLATELET COUNT AUTOMATED 268.0 10*3/uL (130-400); RED CELL DISTRI WIDTH 13.9 % (0-14.5)
[2025-06-26 08:49] LABS: VITAMIN D, 25-HYDROXY 34.8 ng/mL (30-100)
== END | disposition home or self-care (01) ==
LOC: LAB 07:47
PROVIDERS: ATTEND Family Medicine
DX: I10 Essential (primary) hypertension (principal); E78.00 Pure hypercholesterolemia, unspecified; E11.9 Type 2 diabetes mellitus without complications; E55.9 Vitamin D deficiency, unspecified

== ENCOUNTER → 2025-06-28 | Outpatient (CLI) | payer OTHER ==
[2025-06-28 09:25] LABS: BUN 21 mg/dl (9-23); CPK 79 U/L (34-171); LDL CHOLESTEROL 104 mg/dL (9-159); SGPT/ALT 13 U/L (5-49)
== END | disposition home or self-care (01) ==
LOC: LAB 08:19
PROVIDERS: ATTEND Family Medicine
DX: I10 Essential (primary) hypertension (principal); E11.9 Type 2 diabetes mellitus without complications; E78.00 Pure hypercholesterolemia, unspecified; E55.9 Vitamin D deficiency, unspecified

== ENCOUNTER → 2025-09-26 | Outpatient (CLI) | payer OTHER ==
[2025-09-26 08:13] LABS: MEAN CELL VOLUME 89.4 fl (81.0-99.0); MEAN CORPUSCULAR HGB 30.1 pg (27.0-31.0); MEAN PLATELET VOLUME 10.6 fl (9.6-12.3); NUCLEATED RED BLOOD CELL 0.0 % (0.0-0.0); NUCLEATED RED BLOOD CELL 0.0 10*3/uL (0.0-0.0); PLATELET COUNT AUTOMATED 234.0 10*3/uL (130-400); RED CELL DISTRI WIDTH 13.7 % (0-14.5)
[2025-09-26 08:55] LABS: BUN 19 mg/dl (9-23); CPK 62 U/L (34-171); LDL CHOLESTEROL 93 mg/dL (9-159); SGPT/ALT 14 U/L (5-49)
[2025-09-26 08:59] LABS: VITAMIN D, 25-HYDROXY 50.2 ng/mL (30-100)
== END ==
LOC: LAB 07:41
PROVIDERS: ATTEND Family Medicine
DX: I10 Essential (primary) hypertension (principal); E11.9 Type 2 diabetes mellitus without complications; E55.9 Vitamin D deficiency, unspecified; E78.00 Pure hypercholesterolemia, unspecified; R53.83 Other fatigue